=== PATIENT | female | born 1945 | race African-American/Black ===

== ENCOUNTER 2016-02-16 22:33 | Emergency (ER) | payer OTHER ==
[2016-02-16 22:56] LABS: MANUAL DIFF NEEDED? NO
[2016-02-16 23:03] LABS: BASO% 0.3 % (0.0-0.8); EOS# 0.26 X1000 (0.0-0.7); EOS% 3.3 % (0.0-10.0); HEMATOCRIT 36.2 % (37.0-47.0); HEMOGLOBIN 11.8 g/dL (12.0-16.0); IMM GRAN# 0.01 X1000 (0.0-0.04); IMM GRAN% 0.1 % (0.0-0.5); LYMPH# 2.83 X1000 (1.2-3.4); LYMPH% 36.4 % (20.5-51.1); MCH 26.8 PG (27-31); MCHC 32.6 g/dL (33-37); MCV 82.1 FL (81-99); MONO# 0.34 X1000 (0.11-0.59); MONO% 4.4 % (1.7-9.3); MPV 9.5 FL (7.4-10.4); NEUT% 55.5 % (42.2-75.2); PLT 261 X1000 (130-400); RBC 4.41 XMIL (4.2-5.4)
[2016-02-16] MEDS ORDERED: ZOFRAN IV ONE (23:12)
[2016-02-16] MEDS ORDERED: MORPHINE IV ONE (23:12)
[2016-02-16 23:24] LABS: ALBUMIN 4.3 g/dL (3.5-5.0); CALCIUM 9.7 mg/dL (8.8-10.2); POTASSIUM 3.4 mmol/L (3.5-5.1); TOTAL BILIRUBIN 0.2 mg/dL (0.20-1.00); TOTAL PROTEIN 7.5 g/dL (6.3-8.3)
--- NOTE | 2016-02-16 23:26 | ED EKG INTERP ---
EKG Interpretation - EKG Time of EKG reading by physician:: 23:25 EKG Read and Signed by:: Asif Munson EKG Interpretation (*Must complete 3 of following elements*): Abnormal Rate: 71 Rhythm: NSR [place]: normal QRS: LVH (minimum voltage criteria, may be normal variant) SD Interval: prolonged Comments: abnormal Attestation - Scribe Verification/Attestation Scribe:: Jack Pizano Acting as Scribe for:: Asif Munson Scribe documention review:: This chart was documented by a scribe and accurately reflects the service the provider performed and the decisions made by the provider.
--- NOTE | 2016-02-16 23:57 | PROVIDER DOCUMENTATION ---
HPI-Chest Pain - General Chief Complaint: Chest Pain Stated Complaint: CHEAT PAIN Time Seen by Provider: 02/16/16 22:45 Source: patient, family Allergies/Adverse Reactions: Patient Allergies Allergy/AdvReac Type Severity Reaction Status Date / Time prednisone Allergy Severe NAUSEA/VOMI Verified 02/16/16 22:43 TING Sulfa (Sulfonamide Allergy Severe HIVES Verified 02/16/16 22:43 Antibiotics) many analgesics AdvReac Severe nausea and Uncoded 02/16/16 22:43 vomiting Home Medications: Levothyroxine [Synthroid] 88 microgm PO DAILY 01/01/12 Omeprazole 40 mg PO DAILY 01/01/12 Fluticasone 50 Mcg Nasal Reading [Flonase] 1 spray PATTI DAILY 02/16/16 Indapamide 2.5 mg PO DAILY 02/16/16 Irbesartan [Avapro] 300 mg PO DAILY 02/16/16 ROSUVAstatin [Crestor] 20 mg PO DAILY 02/16/16 - History of Present Illness-CP Nature of Presenting Problem: 71 yo F presents to the ER with complaint of intermittent CP that since yesterday. PT states the chest pain migrates from her chest to epigastric and upper quadrant. Pt denies N/V and SOB. Location: reports: central, epigastric Chest Pain Radiation: reports: no radiation Quality of Pain: reports: aching, pressure Severity in ED: mild Onset/Duration: 24 hours ago Timing: still present Aspirin Treatment Today: provided at home Review of Systems - Adult - REVIEW OF SYSTEMS - ADULT Constitutional: denies: chills, fever Eyes: reports: no symptoms reported Ears, Nose, Mouth & Throat: reports: no symptoms reported Cardiovascular: reports: chest pain. denies: palpitations Respiratory: denies: cough, shortness of breath Gastrointestinal: denies: abdominal pain, nausea, vomiting Genitourinary: reports: no symptoms reported Musculoskeletal: reports: no symptoms reported Integumentary: reports: no symptoms reported Neurological: reports: no symptoms reported Psychiatric: reports: no symptoms reported Endocrine: reports: no symptoms reported Hematologic/Lymphatic: reports: no symptoms reported Allergic/Immunologic: reports: no symptoms reported All Other Systems: Reviewed and Negative Past History - Adult - PAST MEDICAL HISTORY-ADULT Review of Records: reports: Old Records Reviewed, Nursing Assessment Review, Medications Reviewed - IMMUNIZATION STATUS Childhood Immunizations: See Nurse Assessment Flu Vaccine: See Nurse Assessment Physical Exam-General - PHYSICAL EXAM-ADULT Initial Vital Signs Reviewed: Yes - CONSTITUTIONAL General Appearance: alert, no apparent distress - EYES Eyes: PERRL/EOMI, pink conjunctivae - HEAD, EARS, NOSE, MOUTH & THROAT HENMT: normocephalic/atraumatic, moist mucous membranes - NECK Neck: non-tender, supple - RESPIRATORY Respiratory: lungs clear, normal breath sounds - CARDIOVASCULAR Cardiovascular: normal peripheral pulses, regular rate, rhythm - GASTROINTESTINAL (ABDOMEN) Abdominal Exam: normal bowel sounds, soft - MUSCULOSKELETAL Back Exam: normal inspection Progress - PLAN OF CARE/RESULTS Progress/Plan/Lab Results: Laboratory Tests 02/16/16 02/16/16 02/16/16 22:43 22:43 22:43 WBC 7.78 RBC 4.41 Hgb 11.8 L Hct 36.2 L MCV 82.1 MCH 26.8 L MCHC 32.6 L RDW Std Deviation 14.0 Plt Count 261 MPV 9.5 Immature Gran % (Auto) 0.1 Neut % (Auto) 55.5 Lymph % (Auto) 36.4 [place] % (Auto) 4.4 Eos % (Auto) 3.3 Baso % (Auto) 0.3 Immature Gran # (Auto) 0.01 Neut # (Auto) 4.32 Lymph # (Auto) 2.83 [place] # (Auto) 0.34 Eos # (Auto) 0.26 Baso # (Auto) 0.02 Sodium 138 Potassium 3.4 L Chloride 98 Carbon Dioxide 28 Anion Gap 12 BUN 14 Creatinine 1.1 H Estimated GFR/1.73 m2 49 BUN/Creatinine Ratio 13 Glucose 152 H Calculated Osmolality 279 Calcium 9.7 Total Bilirubin 0.20 AST 20 ALT 14 Alkaline Phosphatase 88 Creatine Kinase 86 Troponin T < 0.010 Total Protein 7.5 Albumin 4.3 Globulin 3.0 Albumin/Globulin Ratio 1.0 Lipase 02/16/16 22:43 WBC RBC Hgb Hct MCV MCH MCHC RDW Std Deviation Plt Count MPV Immature Gran % (Auto) Neut % (Auto) Lymph % (Auto) [place] % (Auto) Eos % (Auto) Baso % (Auto) Immature Gran # (Auto) Neut # (Auto) Lymph # (Auto) [place] # (Auto) Eos # (Auto) Baso # (Auto) Sodium Potassium Chloride Carbon Dioxide Anion Gap BUN Creatinine Estimated GFR/1.73 m2 BUN/Creatinine Ratio Glucose Calculated Osmolality Calcium Total Bilirubin AST ALT Alkaline Phosphatase Creatine Kinase Troponin T Total Protein Albumin Globulin Albumin/Globulin Ratio Lipase 64 H Orders Category Date Time Status Cardiac Monitoring DIRECTED Care 02/16/16 22:49 Active Oxygen Therapy- ED Nursing DIRECTED Care 02/16/16 22:49 Active Saline Loc NOW Care 02/16/16 22:49 Active CHEST-2 VIEWS [RAD] Stat Exams 02/16/16 22:57 Taken US ABDOMEN-COMPLETE [US] Stat Exams 02/16/16 23:11 Taken CBC WITH ELECTRONIC DIFF [HEME] Stat Lab 02/16/16 22:43 Completed CK PROFILE [SP CHEM] Stat Lab 02/16/16 22:43 Completed COMPREHENSIVE METABOLIC PANEL [CHEM] Stat Lab 02/16/16 22:43 Completed LIPASE [CHEM] Stat Lab 02/16/16 22:43 Completed TROPONIN T Stat Lab 02/16/16 22:43 Completed Morphine Med 02/16/16 23:12 Discontinued 4 mg IV NOW ONE Ondansetron [Zofran] Med 02/16/16 23:12 Discontinued 4 mg IV NOW ONE EKG [EKG] Stat Ther 02/16/16 22:49 Ordered Vital Signs Temp Pulse Resp BP Pulse Ox 02/16/16 22:38 98.3 F 78 16 166/098 99 prednisone Allergy (Severe, Verified 02/16/16 22:43) NAUSEA/VOMITING Sulfa (Sulfonamide Antibiotics) Allergy (Severe, Verified 02/16/16 22:43) HIVES many analgesics Adverse Reaction (Severe, Uncoded 02/16/16 22:43) nausea and vomiting Levothyroxine [Synthroid] 88 microgm PO DAILY 01/01/12 Omeprazole 40 mg PO DAILY 01/01/12 Fluticasone 50 Mcg Nasal Reading [Flonase] 1 spray PATTI DAILY 02/16/16 Indapamide 2.5 mg PO DAILY 02/16/16 Irbesartan [Avapro] 300 mg PO DAILY 02/16/16 ROSUVAstatin [Crestor] 20 mg PO DAILY 02/16/16 Laboratory 02/16/16 02/16/16 02/16/16 22:43 22:43 22:43 WBC 7.78 RBC 4.41 Hgb 11.8 L Hct 36.2 L MCV 82.1 MCH 26.8 L MCHC 32.6 L RDW Std Deviation 14.0 Plt Count 261 MPV 9.5 Immature Gran % (Auto) 0.1 Neut % (Auto) 55.5 Lymph % (Auto) 36.4 [place] % (Auto) 4.4 Eos % (Auto) 3.3 Baso % (Auto) 0.3 Immature Gran # (Auto) 0.01 Neut # (Auto) 4.32 Lymph # (Auto) 2.83 [place] # (Auto) 0.34 Eos # (Auto) 0.26 Baso # (Auto) 0.02 Sodium Potassium Chloride Carbon Dioxide Anion Gap BUN Creatinine Estimated GFR/1.73 m2 BUN/Creatinine Ratio Glucose Calculated Osmolality Calcium Total Bilirubin AST ALT Alkaline Phosphatase Creatine Kinase Troponin T < 0.010 Total Protein Albumin Globulin Albumin/Globulin Ratio Lipase 64 H 02/16/16 22:43 WBC RBC Hgb Hct MCV MCH MCHC RDW Std Deviation Plt Count MPV Immature Gran % (Auto) Neut % (Auto) Lymph % (Auto) [place] % (Auto) Eos % (Auto) Baso % (Auto) Immature Gran # (Auto) Neut # (Auto) Lymph # (Auto) [place] # (Auto) Eos # (Auto) Baso # (Auto) Sodium 138 Potassium 3.4 L Chloride 98 Carbon Dioxide 28 Anion Gap 12 BUN 14 Creatinine 1.1 H Estimated GFR/1.73 m2 49 BUN/Creatinine Ratio 13 Glucose 152 H Calculated Osmolality 279 Calcium 9.7 Total Bilirubin 0.20 AST 20 ALT 14 Alkaline Phosphatase 88 Creatine Kinase 86 Troponin T Total Protein 7.5 Albumin 4.3 Globulin 3.0 Albumin/Globulin Ratio 1.0 Lipase - XRAY 1 XRAY: Bilateral XRAY Study: Chest Impression: Normal XRAY Interpretation: normal - ULTRASOUND (By Radiology) 1 US Study: Abdomen Impression: Normal (no abnormalities) Departure - Departure Time of Disposition Order: 00:15 DIAGNOSIS: Non-cardiac chest pain Disposition: HOME 01 Certified Medical Emergency: Emergent Condition: Good Additional Instructions: Follow up with cardiac doctor, Dr. Kat ED Follow Up Instructions: You have been treated by a care provider in the Emergency Department. These instructions are being provided to you so you can have an understanding of how to care for yourself upon discharge. Upon discharge from the Emergency Department, you are responsible for making arrangements for follow-up care by a physician of your choice. Take all prescribed medications as directed. Return to the Emergency Department immediately for any new or worsening symptoms. You may call the Physician Referral phone number at [phone] to obtain a list of Physicians who are taking new patients. Attestation - Scribe Verification/Attestation Scribe:: Jack Pizano Acting as Scribe for:: Asif Munson Scribe documention review:: This chart was documented by a scribe and accurately reflects the service the provider performed and the decisions made by the provider.
[2016-02-17 00:29] VITALS: BP 144/092
--- NOTE | 2016-02-17 05:27 | EKG Report ---
Test Performed on : 02/16/2016 10:58:15 PM Test Reason : ER12 Blood Pressure : / mmHG Vent. Rate : 071 BPM Atrial Rate : 071 BPM P-R Int : 160 ms QRS Dur : 086 ms QT Int : 372 ms P-R-T Axes : 035 003 013 degrees QTc Int : 404 ms Normal sinus rhythm. Minimal voltage criteria for LVH, may be normal variant Anteroseptal infarct , age undetermined Abnormal ECG No previous ECGs available Unconfirmed Result
--- NOTE | 2016-02-17 10:55 | Diag Imaging Result Document ---
PROCEDURE NAME: US ABDOMEN-COMPLETE - 02/16/2016 COMPLETE ABDOMINAL ULTRASOUND: COMPARISON: None available. FINDINGS: The patient was not n.p.o., and the gallbladder appears to be partially contracted. This gives the impression of wall thickening. However, no gallstones or pericholecystic fluid is identified. The common bile duct is normal in diameter. Sonographic Monroe's sign was reported to be negative. The liver, visualized portion of the pancreas, spleen, aorta, and IVC are grossly unremarkable. Visualization of the left kidney is somewhat limited due to body habitus and inability to maintain a breathhold. The kidneys are grossly unremarkable, otherwise. IMPRESSION: Essentially unremarkable abdominal ultrasound.
--- NOTE | 2016-02-17 11:35 | Diag Imaging Result Document ---
PROCEDURE NAME: CHEST-2 VIEWS - 02/16/2016 PA AND LATERAL RADIOGRAPH OF THE CHEST: COMPARISON: None available. FINDINGS: The lungs are grossly clear. There is no discrete pleural fluid collection or evidence of pneumothorax. The cardiomediastinal silhouette and upper airway are grossly unremarkable. IMPRESSION: No evidence of acute chest pathology.
== END 2016-02-17 00:29 | disposition home or self-care (01) ==
LOC: P.ED 22:33
DX: R07.89 Other chest pain (principal); R94.31 Abnormal electrocardiogram [ECG] [EKG]; R10.13 Epigastric pain; R10.10 Upper abdominal pain, unspecified; Z79.899 Other long term (current) drug therapy
CPT/HCPCS: 71020; 76700; 80053; 82550; 83690; 84484; 85025; 93005